=== PATIENT | male | born 1965 | race Caucasian/White ===

== ENCOUNTER 2023-10-05 07:59 | Emergency (ER) | payer OTHER, SELFPAY ==
[2023-10-05 08:01] VITALS: BP 136/80
--- NOTE | 2023-10-05 08:52 | ED.GENMED ---
History of Present Illness
General
Chief Complaint: Musculo-Skeletal Complaint
Source: patient
Time Seen by Provider: 10/05/23 08:17
Travel History
Have you had any contact with someone who has COVID-19?: No
Do you have any symptoms of coronavirus? Fever > 100 degrees, chills, cough, shortness of breath, sore throat, loss of taste or smell, muscle aches, or headache?: No
History of Present Illness
History of Present Illness:
58-year-old male presents to the emergency room complaining of right shoulder pain. Pain began a couple days ago and has increased in intensity. Patient is right-hand dominant. 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 He has had
shoulder pain in the past but this is lasting longer and is more significant than what he is experienced in the past.
Past History
Past History
ED Past Medical History: None
Social History
Tobacco: Non-smoker
Personal:
Living: with family
Employment: Employed ([employer])
Phy Exam
Physical Exam
Physical Exam:
General: Awake, Alert, Oriented X3. No acute distress.
Vitals: unremarkable
Head: Atraumatic
Eyes: Pupils equal, EOMI
Throat: Airway intact, no exudates
Neck: Trachea midline
Neuro: Nonfocal
Skin: Warm, dry, no rash
Extremities: pulses equal b/l, no edema. Tenderness palpation primarily over the anterior humerus. There is significant limitation to range of motion due to pain. No obvious deformity.
Course
Orders/Labs/Results
Orders:
Orders
10/05/23 08:52
Ibuprofen [Motrin] 600 mg PO NOW STA
Shoulder, Right, Trauma [CR Shoulder, Trauma - Right] Urgent
Comment:
Reason For Exam: significant pain
Vital Signs
Initial and Last Documented VS:
Initial Vital Signs
Temp Pulse Resp BP Pulse Ox
98.6 F 72 16 136/80 98
10/05/23 08:01 10/05/23 08:01 10/05/23 08:01 10/05/23 08:01 10/05/23 08:01
Last Documented Vital Signs
Temp Pulse Resp BP Pulse Ox
98.6 F 72 16 136/80 98
10/05/23 08:01 10/05/23 08:01 10/05/23 08:01 10/05/23 08:01 10/05/23 08:01
*Radiology
Radiology exam reviewed: radiology read reviewed
*Pulse Oximetry
Patient hypoxic: no
*Critical Care Note
Total Time (30-74mins, 75-104mins- exclusive of procedures): Not Applicable
ED Attending Note
-
Portions of this chart may have been created with voice recognition software.� Occasional wrong word or��sound alike� substitutions may have occurred due to the inherent limitations of voice recognition software.
Discharge Plan
Departure
Patient Disposition: Home (Routine Discharge)
Date of Disposition: 10/05/23
Time of Disposition: 09:18
Patient with high blood pressure during this ER visit?: Yes
Condition: Good
Discharge Problem:
Right shoulder pain, Tendinopathy
Instructions: Shoulder Pain ED
Prescriptions:
No Action
No Current Medications
0
Referrals:
Elle Ricci PA-C [Family Provider] -
Shawn Buckley MD [Active] -
Activity Restrictions/Additional Instructions:
You can take 600mg of ibuprofen every 6 hours for shoulder pain. Please follow up with ortho....call when you get home to get the next available appointment.
Interventions
Interventions:
*ED COVID-19 Vaccine History Last Done: 10/05/23 08:01
[2023-10-05] MEDS: MOTRIN 600 MG PO (09:22)
[2023-10-05 09:25] VITALS: BP 131/77
== END 2023-10-05 09:25 | disposition home or self-care (01) ==
LOC: EMR 07:59
PROVIDERS: EMERGENCY PHYSICIAN Emergency Medicine; FAMILY PHYSICIAN Physician Assistant Medical
DX: M25.511 Pain in right shoulder (principal); M67.813 Other specified disorders of tendon, right shoulder
CPT/HCPCS: 99283; 73030